=== PATIENT | male | born 1990 | race Caucasian/White ===

== ENCOUNTER 2016-08-01 18:49 | Emergency (ER) | payer OTHER ==
[2016-08-01 19:58] LABS: ABSOLUTE BASOPHIL COUNT 0 /CUMM (0.0-0.2); ABSOLUTE EOSINOPHIL COUNT 0.1 /CUMM (0.0-0.7); ABSOLUTE GRANULOCYTE CT 4.1 /CUMM (1.4-6.5); ABSOLUTE LYMPH COUNT 1.5 /CUMM (1.2-3.4); ABSOLUTE MONOCYTE COUNT 0.4 /CUMM (0.10-0.60); BASOPHIL % 0.4 % (0.0-2.0); EOSINOPHIL % 1.2 % (0-5); GRANULOCYTE % 67.2 % (42.2-75.2); HEMATOCRIT 45.8 % (42-52); MEAN CORPUSCULAR HGB 30.6 PG (27.0-31.0); MEAN CORPUSCULAR HGB CONC 34.5 G/DL (33.0-37.0); MEAN CORPUSCULAR VOLUME 88.5 FL (80.0-94.0); MEAN PLATELET VOLUME 7.8 FL (7.4-10.4); PLATELET COUNT 212 /CUMM (130-400); RBC DISTRIBUTION WIDTH 13.1 % (11.5-14.5); RED BLOOD CELL CT 5.17 /CUMM (4.70-6.10)
[2016-08-01] MEDS ORDERED: GUAIFENESIN-COD10 ML PO (22:10)
[2016-08-01] MEDS ORDERED: ZITHROMAX500 M2 PO (22:10)
[2016-08-01] MEDS ORDERED: TESSALON PERLE100 M1 PO (22:10)
[2016-08-01] MEDS ORDERED: VENTOLIN HFA18 GM INH (22:10)
[2016-08-01] MEDS ORDERED: MEDROL4 M2 PO (22:10)
--- NOTE | 2016-08-01 22:11 | ED INFLUENZA/URI COMPLAINT ---
History of Present Illness General Chief Complaint: Fever Stated Complaint: COLD WITH FEVER COUGH NAUSE VOMITTING Source: patient Exam Limitations: no limitations Vital Signs & Intake/Output Vital Signs & Intake/Output Vital Signs Date Time Temp Pulse Resp B/P Pulse O2 O2 Flow FiO2 Ox Delivery Rate 08/01 2221 98.7 76 16 128/90 97 Room Air 08/01 1926 98.5 74 18 130/91 98 Room Air ED Intake and Output 08/02 0000 08/01 1200 Intake Total 0 Output Total Balance 0 Intake, Oral 0 Allergies Coded Allergies: NO KNOWN ALLERGIES (08/01/16) Reconcile Medications Albuterol Sulfate (Ventolin Hfa) 90 MCG HFA.AER.AD 2 PUF INH Q4-6 PRN PRN SHORNTESS OF BREATH Azithromycin (Zithromax) 500 MG TABLET 1 TAB PO DAILY PNEUMONIA Benzonatate (Tessalon Perle) 100 MG CAPSULE 1 CAP PO TID PRN COUGH Methylprednisolone. (Medrol) 4 MG TAB.DS.PK 1 DP PO AD INFLAMMATION 6 on day 1 then reduce by one tablet daily until gone Robitussin AC (Guaifenesin-Codeine Syrup) 200 MG-20 MG/10 ML LIQUID 10 ML PO TID PRN COUGH Triage Note: TRIAGE; PT TO ED C/O N/V SINCE YESTERDAY. DENIES ANY DIARRHEA. STATES HE HAS A COUGH THAT IS MAKING IT WORSE. WHEN HE LAYS DOWN HE STARTS TO COUGH WHICH HE THEN STARTS TO VOMIT AFTERWARDS. STATES HE HAD A FEVER OF 101-102, HAD MOTRIN, TEMP IN TRIAGE CURRENTLY 98.5. PT DENIES ANY RECENT SICK CONTACTS. STATES THAT HE IS ABLE TO KEEP LIQUIDS DOWN, BUT NO SOLIDS. DENIES ANY ABD PAIN AT THIS TIME. Triage Nurses Notes Reviewed? yes Onset: Gradual Duration: constant Timing: recent history Severity: moderate Severity Numbers: 5 HPI: Patient is a 26-year-old male with an unremarkable past medical history of present emergency room with concerns of a three-day history of nonproductive persisting coughing in which he states the coughing is worse at night and which when he lies down the coughing is so bad and persistent that he has had 2 episodes of nonbloody nonbilious emesis. Patient has tried [id number] medications with minimal relief of symptoms. Denies any neck pain neck stiffness sinus pain year pain sore throat abdominal pain. Patient has associated symptoms of generalized weakness fevers and headache. Positive sick contacts at home Past History Travel History Traveled to [place] past 21 day No Medical History Any Pertinent Medical History? see below for history Neurological: NONE EENT: NONE Cardiovascular: NONE Respiratory: NONE Gastrointestinal: NONE Hepatic: NONE Renal: NONE Musculoskeletal: ECZEMA Psychiatric: NONE Endocrine: NONE Blood Disorders: NONE Cancer(s): NONE PLANNING TECHNICIAN/Reproductive: NONE Surgical History Surgical History: non-contributory, N Psychosocial History What is your primary language Mauritian Tobacco Use: Never used Family History Hx Contributory? No Review of Systems Review of Systems Constitutional: Reports: see HPI. EENTM: Reports: see HPI. Respiratory: Reports: see HPI, cough. Cardiovascular: Reports: no symptoms. GI: Reports: no symptoms. Genitourinary: Reports: no symptoms. Musculoskeletal: Reports: no symptoms. Skin: Reports: no symptoms. Neurological/Psychological: Reports: no symptoms. Hematologic/Endocrine: Reports: no symptoms. Immunologic/Allergic: Reports: no symptoms. All Other Systems: Reviewed and Negative Physical Exam Physical Exam General Appearance: no apparent distress, comfortable Ears, Nose, Throat: normal ENT inspection, moist mucous membrane, hearing grossly normal, Tympanic normal, pharynx normal Comments: Well-developed well-nourished person in no acute distress HEENT: Normal EENT exam, extraocular motion intact, no nystagmus. Pupils equally round and reactive to light and accommodation. Nose is atraumatic. External auditory canal and Tympanic membranes clear. Pharynx normal. No swelling or edema. Neck: Supple, no lymphadenopathy, normal range of motion without pain or tenderness Back: Nontender, no CVA tenderness. Cardiovascular: Regular rate and rhythms no murmurs rubs or gallops, normal JVP Respiratory: Chest nontender. No respiratory distress decreased breath sounds and mild crackles noted to left lung base Abdomen: Soft, nontender nondistended, no appreciable organomegaly. Normal bowel sounds. No ascites Extremity: No edema, no calf tenderness to palpation, normal and equal pulses. Neuro: Alert oriented x3, motor sensory normal, Skin: No appreciable rash on exposed skin, skin is warm and dry. Psych: Mood and affect is normal, memory and judgment is normal. Core Measures Severe Sepsis Present: No Septic Shock Present: No Progress Differential Diagnosis: influenza, meningitis, neutropenia, otitis, pneumonia, pharyngitis, sinusitis Plan of Care: Orders Procedure Date/time Status LIPASE 08/01 1929 Complete LACTIC ACID 08/01 1929 Complete COMPREHENSIVE METABOLIC PANEL 08/01 1929 Complete CBC WITHOUT DIFFERENTIAL 08/01 1929 Complete AMYLASE 08/01 1929 Complete Laboratory Tests 08/01/162229: Lactic Acid Cancelled 08/01/161934: Anion Gap 13, Estimated GFR > 60, BUN/Creatinine Ratio 13.3, Glucose 76, Lactic Acid 0.9, Calcium 9.7, Total Bilirubin 1.1, AST 18, ALT 33, Alkaline Phosphatase 48, Total Protein 7.4, Albumin 4.6, Globulin 2.8, Albumin/Globulin Ratio 1.6, Amylase 49, Lipase 66, CBC w Diff NO MAN DIFF REQ, RBC 5.17, MCV 88.5, MCH 30.6, RDW 13.1, MPV 7.8, Gran % 67.2, Lymphocytes % 24.3, Monocytes % 6.9, Eosinophils % 1.2, Basophils % 0.4, Absolute Granulocytes 4.1, Absolute Lymphocytes 1.5, Absolute Monocytes 0.4, Absolute Eosinophils 0.1, Absolute Basophils 0, PUBS MCHC 34.5 Patient currently looks well nontoxic-appearing oxygen saturation 98% room air. Afebrile. Due to history of present illness and exam findings patient will be treated for concerns of community-acquired pneumonia. Patient was strongly advised to follow-up with primary care doctor as directed and instructions. (ADRIANA LUA,GENA) Initial ED EKG: none Departure Departure Disposition: HOME OR SELF CARE Condition: Stable Clinical Impression Primary Impression: Pneumonia Referrals: LUCIO HERRING MD (PCP/Family) Additional Instructions: As discussed in the prescription of azithromycin for the full course. Begin a prescription of Tessalon Perles and Robitussin with codeine for cough. Ventolin for shortness of breath Medrol Dosepak for inflammation cough. If symptoms worsen return to emergency room. If no better Sunday follow-up with her primary care doctor. Prescriptions awaiting at [facility]. Begin Tylenol for fevers Motrin for pain. Departure Forms: Customer Survey General Discharge Information Prescriptions: Current Visit Scripts Azithromycin (Zithromax) 1 TAB PO DAILY #5 TAB Benzonatate (Tessalon Perle) 1 CAP PO TID PRN COUGH #21 CAP Methylprednisolone. (Medrol) 1 DP PO AD #1 DP 6 on day 1 then reduce by one tablet daily until gone Robitussin AC (Guaifenesin-Codeine Syrup) 10 ML PO TID PRN COUGH #120 ML Albuterol Sulfate (Ventolin Hfa) 2 PUF INH Q4-6 PRN PRN SHORNTESS OF BREATH #1 INHAL
[2016-08-01 22:22] VITALS: BP 128/90
== END 2016-08-01 22:24 ==
LOC: ERH 18:49
PROVIDERS: Emergency Medicine
DX: J18.9 Pneumonia, unspecified organism (principal); R53.1 Weakness; R50.9 Fever, unspecified; R51 Headache